=== PATIENT | female | born 1960 | race Caucasian/White ===

== ENCOUNTER 2017-07-14 15:26 | Emergency (ER) | payer BC, MEDICARE ==
[~2017-07-14] VITALS: Ht 160 cm; Wt 63.5 kg
[2017-07-14] MEDS ORDERED: VITAMIN D1000 UNI1 PO (15:40)
[2017-07-14] MEDS ORDERED: VALACYCLOVIR500 MG PO (15:41)
[2017-07-14] MEDS ORDERED: MODAFINIL100 MG (15:41)
[2017-07-14] MEDS ORDERED: BACLOFEN10 MG PO (15:42)
== END 2017-07-14 16:27 | disposition left against medical advice (07) ==
LOC: ER 15:26
DX: T78.40XA Allergy, unspecified, initial encounter (principal)
CPT/HCPCS: 93005

== ENCOUNTER → 2021-01-14 | Outpatient (CLI) | payer BC, MEDICARE ==
[2021-01-12 09:26] LABS: BASOPHILS % 0.5 % (0.0-1.0); EOSINOPHILS # (AUTO) 0.1 (0.0-0.4); EOSINOPHILS % 2.2 % (0.0-6.0); HEMATOCRIT 40.9 % (34.2-44.1); HEMOGLOBIN 13.3 g/dL (12.0-16.0); LYMPHOCYTES # (AUTO) 1.7 (1.0-3.2); LYMPHOCYTES % 29.8 % (18.0-39.1); MEAN CORPUSCULAR HEMOGLOBIN 29.6 pg (28-32); MEAN CORPUSCULAR HGB CONC 32.5 g/dL (31-35); MEAN CORPUSCULAR VOLUME 90.9 fL (81-99); MONOCYTES # (AUTO) 0.5 (0.2-0.8); MONOCYTES % 7.9 % (4.4-11.3); NEUTROPHILS # (AUTO) 3.5 (2.1-6.9); NEUTROPHILS % 59.3 % (38.7-80.0); PLATELET COUNT 275 x10e3/uL (140-360); RED CELL DISTRIBUTION WIDTH 12.8 % (11.7-14.4)
[~2021-01-14] MED LIST: BACLOFEN10 MG PO; GADOBENATE DIMEGLUMINE 0 ML IV ONE; GADOBENATE DIMEGLUMINE 1 ML IV ONE; LACTATED RINGER'S 1,000 ML ONE; LIDOCAINE HCL 2% LOCAL INJ 5 ML SDV VIAL INJ ONE; LORAZEPAM INJ 2 MG/ML VIAL ONE; MIDAZOLAM HCL 2 MG/2 ML VIAL ONE; MODAFINIL100 MG; POVIDONE IODINE 0.05% 0.05 % ML PO ONE; PROPOFOL IV EMULSION 10 MG/ML 20 ML VIAL ONE; SODIUM CHLORIDE 0.9% 50ML 50 ML ONE; VALACYCLOVIR500 MG PO; VITAMIN D1000 UNI1 PO
[2021-01-14 08:30] LABS: BASOPHILS % 0.6 % (0.0-1.0); EOSINOPHILS # (AUTO) 0.1 (0.0-0.4); HEMATOCRIT 42.6 % (34.2-44.1); HEMOGLOBIN 13.5 g/dL (12.0-16.0); LYMPHOCYTES # (AUTO) 2.1 (1.0-3.2); LYMPHOCYTES % 30.5 % (18.0-39.1); MEAN CORPUSCULAR HGB CONC 31.7 g/dL (31-35); MEAN CORPUSCULAR VOLUME 91.4 fL (81-99); MONOCYTES # (AUTO) 0.5 (0.2-0.8); MONOCYTES % 7.1 % (4.4-11.3); NEUTROPHILS # (AUTO) 4.2 (2.1-6.9); NEUTROPHILS % 59.4 % (38.7-80.0); PLATELET COUNT 288 x10e3/uL (140-360); RED BLOOD COUNT 4.66 x10e6/uL (3.6-5.1); RED CELL DISTRIBUTION WIDTH 12.9 % (11.7-14.4)
== END ==
LOC: MRI 12-22 11:55
PROVIDERS: ATTEND Psychiatry & Neurology Neurology
DX: G35 Multiple sclerosis (principal); M62.830 Muscle spasm of back; M62.838 Other muscle spasm; H53.9 Unspecified visual disturbance; H53.2 Diplopia; R20.8 Other disturbances of skin sensation
CPT/HCPCS: 36415 ×2; 70553; 72156; 72157; 85025 ×2; 93005 ×2; J2001; J2250; J2704; J7121; U0002; J2060